=== PATIENT | male | born 1990 | race Two or more races ===

== ENCOUNTER 2017-11-17 10:54 | Emergency (ER) | payer SELFPAY ==
[~2017-11-17] VITALS: Ht 167.6 cm; Wt 105.0 kg
[~2017-11-17 10:54] MED LIST: CYCL-1 PO; HYDR-3965 PO
[2017-11-17] MEDS ORDERED: LIDOcaine/epinephrine TOPICAL 5 ML BTL TOP ONE (11:10)
[2017-11-17] MEDS ORDERED: HYDROcodone/acetaminophen 10/325mg tab PO ONE (12:00)
[2017-11-17] MEDS ORDERED: penicillin G potassium inj 2,000,000 UNIT in normal saline 100ml IV soln 100 ML IV ONE (12:10)
[2017-11-17] MEDS ORDERED: ondansetron/PF 4mg/2ml inj IV ONE (12:20)
[2017-11-17] MEDS ORDERED: ampicillin/sulbac 3gm/NS 100ml 100 ML IV ONE (12:20)
[2017-11-17] MEDS ORDERED: morphine 4 MG/ML inj SYRINge IV ONE (12:20)
[2017-11-17 12:37] LABS: BASOPHILS % (AUTO) 0 % (0-1); EOSINOPHILS # (AUTO) 0.2 X10'3 (0-0.9); EOSINOPHILS % (AUTO) 1.5 % (0-6); HEMOGLOBIN 15.4 g/dl (14.0-17.9); LYMPHOCYTES # (AUTO) 1.1 X10'3 (1.1-4.8); LYMPHOCYTES % (AUTO) 7.6 % (21-51); MEAN CORPUSCULAR HEMOGLOBIN 31.1 PG (27.0-31.0); MEAN CORPUSCULAR HGB CONC 34.3 % (33.0-36.5); MEAN CORPUSCULAR VOLUME 90.4 FL (78-98); MEAN PLATELET VOLUME 9.9 FL (7.4-10.4); MONOCYTES # (AUTO) 0.6 X10'3 (0-0.9); MONOCYTES % (AUTO) 4.2 % (2-12); NEUTROPHILS # (AUTO) 13.2 X10'3 (1.8-7.7); NEUTROPHILS % (AUTO) 86.7 % (42-75); PLATELET COUNT 187 X10'3 (140-440); RED BLOOD COUNT 4.97 X10'6 (4.70-6.10); RED CELL DISTRIBUTION WIDTH 13.8 % (11.5-14.5); WHITE BLOOD COUNT 15.2 X10'3 (4.5-11.0)
[2017-11-17 12:46] LABS: INR 0.9 INR; PROTHROMBIN TIME 9.8 SECONDS (9.0-12.0)
[2017-11-17] MEDS ORDERED: WATER IV ONE (12:50)
[2017-11-17] MEDS ORDERED: SULBACTAM IV ONE (12:50)
[2017-11-17] MEDS ORDERED: DEXTROSE 5% IV ONE (12:50)
[2017-11-17] MEDS ORDERED: AMPICILLIN IV ONE (12:50)
[2017-11-17 12:52] LABS: ALANINE AMINOTRANSFERASE 87 U/L (12-78); ALBUMIN 3.9 G/DL (3.4-5.0); ALBUMIN/GLOBULIN RATIO 0.9 (1.1-1.5); ALKALINE PHOSPHATASE 91 IU/L (46-116); ANION GAP 17 (8-16); ASPARTATE AMINO TRANSFERASE 40 U/L (10-37); BILIRUBIN,TOTAL 0.5 MG/DL (0.1-1.0); BLOOD UREA NITROGEN 15 MG/DL (7-18); BUN/CREATININE RATIO 16.3 (5.4-32.0); CALCIUM 8.7 MG/DL (8.5-10.1); CHLORIDE 99 MMOL/L (99-107); CREATININE 0.92 MG/DL (0.60-1.10); GLUCOSE 125 MG/DL (70-104); POTASSIUM 4.1 MMOL/L (3.5-5.1); SODIUM 136 MMOL/L (135-145); TOTAL CARBON DIOXIDE 19.6 MMOL/L (24-32); TOTAL PROTEIN 8.3 G/DL (6.4-8.2); eGFR > 90 ML/MIN
[2017-11-17 13:34] VITALS: BP 138/89
== END 2017-11-17 14:18 | disposition short-term general hospital (02) ==
LOC: ER 10:55
DX: S02.641B Fracture of ramus of right mandible, initial encounter for open fracture (principal); S02.652B Fracture of angle of left mandible, initial encounter for open fracture; Z79.899 Other long term (current) drug therapy; Y04.0XXA Assault by unarmed brawl or fight, initial encounter; Y93.89 Activity, other specified; Y92.89 Other specified places as the place of occurrence of the external cause; Y99.8 Other external cause status
CPT/HCPCS: 36415; 70486; 80053; 85025; 85610; 96365; 96375; 99291; J0295; J2270; J2405; J7060; J2540; J7030